=== PATIENT | male | born 1950 | race Caucasian/White ===

== ENCOUNTER 2017-04-29 13:30 | Inpatient (IN) | payer OTHER, MEDICARE ==
[~2017-04-29] VITALS: Ht 167.6 cm; Wt 61.7 kg
--- NOTE | 2017-04-29 13:56 | ED PSYCHIATRIC COMPLAINT ---
See Addendum History of Present Illness General Chief Complaint: ETOH/Drug Related Complaint Stated Complaint: CLEARANCE FOR HIGHWATCH Source: patient Exam Limitations: intoxication Vital Signs & Intake/Output Vital Signs & Intake/Output Vital Signs Date Time Temp Pulse Resp B/P B/P Pulse O2 O2 Flow FiO2 Mean Ox Delivery Rate 04/30 0250 98.9 78 18 113/64 04/30 0250 98.9 78 20 113/64 94 Room Air 04/30 0218 122/68 04/30 0052 97.8 79 20 96/52 04/30 0052 97.8 79 20 96/52 95 Room Air 04/29 2251 106 118/60 04/29 2235 98.2 106 18 118/60 96 Room Air 04/29 2039 96.7 91 18 110/60 97 04/29 1943 96.0 93 20 118/60 04/29 1825 96.0 93 20 118/60 92 Room Air 04/29 1812 98.0 95 16 100/60 04/29 1811 98.0 95 16 100/60 98 Room Air 04/29 1655 97.8 77 20 100/64 98 Room Air 04/29 1430 96.2 90 20 119/68 04/29 1430 96.2 90 20 119/68 100 Room Air 04/29 1343 98.6 122 18 169/110 98 Room Air ED Intake and Output 04/30 0000 04/29 1200 Intake Total Output Total Balance Patient 140 lb Weight Weight Reported by Patient Measurement Method Allergies Coded Allergies: penicillin G (Severe, 04/29/17) Triage Note: 67 YO MALE TO TRIAGE REQUESTING CLEARENCE FOR HIGHWATCH. DENIE SEIZURE HX. 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 PT NOTED TO SLURRING WORDS AND STRONG SMELL OF ALCOHOL. Triage Nurses Notes Reviewed? yes HPI: Patient presents for evaluation of alcohol intoxication and dependence. Patient admits to drinking 2 pints of vodka daily and his last alcoholic beverages about 30 minutes prior to arrival. He states he has "a drinking problem" and that he "drinks a lot". He wishes to have alcohol detoxification. After that he wishes to enter [facility] for rehabilitation. He admits to having a seizure "a long time ago" but denies history of DTs. He likewise denies drug abuse or cigarette smoking. (Greta RAMIREZ,Marcus Vang) Reconcile Medications Aspirin (Aspirin*) 325 MG TABLET 1 TAB PO DAILY CAD (Reported) Atorvastatin Calcium 10 MG TABLET 1 TAB PO DAILY CAD/ELEVATED CHOLESTEROL ( Reported) Gabapentin 300 MG CAPSULE 1 CAP PO 4 TIMES/DAY UNKNOWN REASON (Reported) Metoprolol Tartrate 25 MG TABLET 1 TAB PO QPM CAD (Reported) Metoprolol Tartrate (Lopressor) 50 MG TABLET 1 TAB PO QAM CAD (Reported) (Carlos Eduardo RAMIREZ,Ria) Past History Travel History Traveled to [place] past 21 day No Medical History Any Pertinent Medical History? see below for history Cardiovascular: CAD Surgical History Surgical History: CABG Psychosocial History What is your primary language Slovenian Tobacco Use: Never used ETOH Use: alcoholic Illicit Drug Use: denies illicit drug use Family History Hx Contributory? No (Greta RAMIREZ,Marcus Vang) Review of Systems Review of Systems Constitutional: Reports: no symptoms. EENTM: Reports: no symptoms. Respiratory: Reports: no symptoms. Cardiovascular: Reports: no symptoms. GI: Reports: no symptoms. Genitourinary: Reports: no symptoms. Musculoskeletal: Reports: no symptoms. Skin: Reports: no symptoms. Neurological/Psychological: Reports: no symptoms. Hematologic/Endocrine: Reports: no symptoms. Immunologic/Allergic: Reports: no symptoms. All Other Systems: Reviewed and Negative (Greta RAMIREZ,Marcus Vang) Physical Exam Physical Exam General Appearance: SEE BELOW Neurological/Psychiatric: SEE BELOW Comments: General: Alert, calm but becomes loud at times, cooperative, EtOH-like odor and appears clinically intoxicated Head: Normocephalic, atraumatic Eyes: Normal inspection, no nystagmus, EOMI Ears: Normal inspection Nose: Normal inspection Throat: Moist mucosa Neck: Supple, no goiter Heart: Regular rate and rhythm Lungs: Clear to auscultation bilaterally with good air entry Abdomen: Soft nontender nondistended, normal bowel sounds Chest: Nontender Extremities: Normal range of motion grossly, mild tremors present, no cyanosis clubbing or edema of the upper extremities Neurologic: cranial nerves II through XII grossly intact, speech slurred Psychiatric: No apparent delusions or hallucinations, no pressured speech or thought blocking SAD PERSONS Done? patient not suicidal (Greta RAMIREZ,Marcus Vang) Progress Differential Diagnosis: intoxication, alcohol withdrawal Plan of Care: Orders Procedure Date/time Status Patient Safety Monitor 04/29 1403 Active CIWA 04/29 1333 Active URINE DRUG SCREEN FOR ER ONLY 04/29 1333 Complete LIPASE 04/29 1333 Complete ETHANOL 04/29 1333 Complete COMPREHENSIVE METABOLIC PANEL 04/29 1333 Complete CBC WITHOUT DIFFERENTIAL 04/29 1333 Complete AMYLASE 04/29 1333 Complete Current Medications Sig/Zahraa Start time Last Medication Dose Stop Time Status Admin Metoprolol Tartrate 50 MG QAM 04/30 1000 UNVr (Lopressor) Gabapentin 300 MG Q6 04/29 2359 UNVr 04/29 (Neurontin) 2251 Laboratory Tests 04/29/17 1521: Urine Opiates Screen < 100.00, Methadone Screen < 40, Barbiturate Screen < 60, Ur Phencyclidine Scrn < 6.00, Amphetamines Screen < 100, U Benzodiazepines Scrn < 85, Urine Cocaine Screen < 50, Urine Cannabis Screen 11.00 04/29/17 1420: Anion Gap 20 H, Estimated GFR > 60, BUN/Creatinine Ratio 26.0 H, Glucose 133 H, Calcium 8.9, Total Bilirubin 1.0, AST 45, ALT 40, Alkaline Phosphatase 61, Total Protein 6.8, Albumin 4.3, Globulin 2.5, Albumin/Globulin Ratio 1.7, Amylase 34, Lipase 103, CBC w Diff NO MAN DIFF REQ, RBC 3.71 L, MCV 104.3 H, MCH 35.3 H, RDW 14.9 H, MPV 6.9 L, Gran % 72.4, Lymphocytes % 19.5 L, Monocytes % 7.6, Eosinophils % 0.1, Basophils % 0.4, Absolute Granulocytes 5.5, Absolute Lymphocytes 1.5, Absolute Monocytes 0.6, Absolute Eosinophils 0, Absolute Basophils 0, PUBS MCHC 33.9, Serum Alcohol 533.0 7:15 PM PATIENT SIGNED OUT TO ME BY DR HERNANDES. PENDING SOBRIETY, IF STABLE MAY TRANSFER TO [facility] IN AM. 1:30 AM PATIENT WITH SLIGHT HYPOTENSION. IV FLUIDS 1 L ORDERED. WILL CONTINUE TO MONITOR. 3:46 AM BP WNL. NO EVIDENCE OF WITHDRAWAL. 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 (Greta RAMIREZ,Marcus Vang) Hand-Off Endorsed To: Marcus Hernandes MD Endorsed Time: 0700 Pending: other (TRANSFER TO [facility]) (Carlos Eduardo RAMIREZ,Ria) Departure Departure Disposition: STILL A PATIENT Condition: Stable Clinical Impression Primary Impression: Alcohol intoxication Qualifiers: Complication of substance-induced condition: uncomplicated Qualified Code: F10.920 - Alcohol use, unspecified with intoxication, uncomplicated Departure Forms: Customer Survey General Discharge Information (Greta RAMIREZ,Marcus Vang) PA/DRYWALL CARRIER Co-Sign Statement Statement: ED Attending supervision documentation- [] I saw and evaluated the patient. I have also reviewed all the pertinent lab results and diagnostic results. I agree with the findings and the plan of care as documented in the PA's/DRYWALL CARRIER's documentation. [] I have reviewed the ED Record and agree with the PA's/DRYWALL CARRIER's documentation. [] Additions or exceptions (if any) to the PAs/DRYWALL CARRIER's note and plan are summarized below: [] (Carlos Eduardo RAMIREZ,Ria)
[2017-04-29 14:27] LABS: ABSOLUTE BASOPHIL COUNT 0 /CUMM (0.0-0.2); ABSOLUTE EOSINOPHIL COUNT 0 /CUMM (0.0-0.7); ABSOLUTE GRANULOCYTE CT 5.5 /CUMM (1.4-6.5); ABSOLUTE LYMPH COUNT 1.5 /CUMM (1.2-3.4); ABSOLUTE MONOCYTE COUNT 0.6 /CUMM (0.10-0.60); BASOPHIL % 0.4 % (0.0-2.0); EOSINOPHIL % 0.1 % (0-5); GRANULOCYTE % 72.4 % (42.2-75.2); HEMATOCRIT 38.7 % (42-52); MEAN CORPUSCULAR HGB 35.3 PG (27.0-31.0); MEAN CORPUSCULAR HGB CONC 33.9 G/DL (33.0-37.0); MEAN CORPUSCULAR VOLUME 104.3 FL (80.0-94.0); MEAN PLATELET VOLUME 6.9 FL (7.4-10.4); PLATELET COUNT 135 /CUMM (130-400); RBC DISTRIBUTION WIDTH 14.9 % (11.5-14.5); RED BLOOD CELL CT 3.71 /CUMM (4.70-6.10); WHITE BLOOD CELL COUNT 7.7 /CUMM (4.8-10.8)
[2017-04-29 14:30] VITALS: BP 119/68
[2017-04-29] MEDS ORDERED: METOPROLOL SUCC50 M2 PO (16:53)
[2017-04-29] MEDS ORDERED: METOPROLOL TART25 M1 PO (16:53)
[2017-04-29] MEDS ORDERED: ASPIRIN325 M2 PO (16:54)
[2017-04-29] MEDS ORDERED: GABAPENTIN300 M2 PO (16:54)
[2017-04-29] MEDS ORDERED: LOPRESSOR50 M1 PO (16:55)
[2017-04-29 18:12] VITALS: BP 100/60
[2017-04-29 19:43] VITALS: BP 118/60
[2017-04-29] MEDS ORDERED: ATORVASTATIN CA10 M1 PO (22:56)
[2017-04-30] VITALS (11 sets, daily range): BP systolic 96–188; BP diastolic 52–92
--- NOTE | 2017-04-30 11:19 | History & Physical ---
Oswaldo Hope 04/30/17 1119: General Information and HPI MD Statement: I have seen and personally examined NADIR GABRIEL and documented this H&P. The patient is a 67 year old M who presented with a patient stated chief complaint of alcohol detoxification. Source of Information: patient Exam Limitations: no limitations History of Present Illness: This is a 67-year-old male with past medical history significant for mitral valve replacement, atrial fibrillation status post cardioversion, not on anticoagulation, hyperlipidemia,nerve pain, current smoker, alcoholic presented to [facility] for alcohol detoxification. Patient presented to [facility] today requesting for alcohol detox and going to [facility] for rehabilitation. Patient has been drinking for years. He usually drinks 2 pints of vodka daily. He was sober for a few months in this summer. However he continued to drink 2-3 pints of vodka daily. Last drink 30 minutes prior coming to the emergency room. Patient was admitted to [facility] recently for alcohol detox. He was never admitted to ICU for intubation or required Ativan drip. He has had episode of withdrawal seizures few years back. He denies any seizures, visual hallucinations, auditory hallucinations, vomiting , abdominal pain, troubles. However he reports nausea, sweating, anxiety. Denied any agitation, delirium tremens. He continued to be hypotensive, tachycardic in the emergency room with high CIWA scores requiring for alcohol detoxification admission. Review of systems completely negative. Denies any chest pain, short of breath, palpitations, fever, chills, cough, vomiting, abdominal pain, diarrhea, constipation. Reports mild headache. Denies any weakness, sensory changes, vision problems. Reports some gait instability from drinking. He follows PCP in [place]. Continues to smoke 10 cigarettes per day. Denies any illicit drug abuse. Allergies/Medications Allergies: Coded Allergies: penicillin G (Severe, 04/29/17) Home Med list Aspirin (Aspirin*) 325 MG TABLET 1 TAB PO DAILY CAD (Reported) Atorvastatin Calcium 10 MG TABLET 1 TAB PO DAILY CAD/ELEVATED CHOLESTEROL ( Reported) Gabapentin 300 MG CAPSULE 1 CAP PO 4 TIMES/DAY UNKNOWN REASON (Reported) Metoprolol Tartrate 25 MG TABLET 1 TAB PO QPM CAD (Reported) Metoprolol Tartrate (Lopressor) 50 MG TABLET 1 TAB PO QAM CAD (Reported) Compliance With Home Meds: GOOD Past History Travel History Traveled to [place] past 21 day No Medical History Cardiovascular: CAD Isolation History: Standard Surgical History Surgical History: CABG Past Family/Social History Family History Relations & Conditions if any Relation not specified for: *No pertinent family history Psychosocial History Smoking Status: Current Everyday Smoker ETOH Use: alcoholic Illicit Drug Use: denies illicit drug use Review of Systems Review of Systems Constitutional: Reports: see HPI. Denies: chills, fever, malaise, weakness, unexplained weight loss. EENTM: Denies: blurred vision, double vision. Cardiovascular: Denies: chest pain, edema, orthopena, palpitations, peripheral edema. Respiratory: Denies: cough, hemoptysis, orthopnea, short of breath, sputum production, stridor, wheezing. GI: Reports: nausea. Denies: abdominal pain, bloating, constipation, diarrhea, distention, bowel incontinence, melena, bloody stool, vomiting. Genitourinary: Denies: dysuria, frequency, hematuria. Musculoskeletal: Denies: back pain, gout, joint pain. Skin: Denies: jaundice, lesions, moles. Neurological/Psychological: Reports: anxiety. Denies: ataxia, confusion, depressed. Exam & Diagnostic Data Last 24 Hrs of Vital Signs/I&O Vital Signs Date Time Temp Pulse Resp B/P B/P Pulse O2 O2 Flow FiO2 Mean Ox Delivery Rate 04/30 1530 98.6 80 16 132/78 95 Room Air 04/30 1529 98.8 80 16 132/78 04/30 1437 98.7 80 18 126/74 04/30 1436 98.7 80 18 126/74 95 Room Air 04/30 1256 98.5 80 18 143/78 95 Room Air 04/30 1025 98.8 110 18 188/84 04/30 0947 98.8 110 18 188/84 04/30 0947 98.8 110 18 188/84 98 Room Air 04/30 0652 97.7 88 18 159/85 04/30 0652 97.7 88 18 159/85 95 Room Air 04/30 0452 98.0 92 18 124/78 04/30 0452 98.8 92 18 124/78 94 Room Air 04/30 0250 98.9 78 18 113/64 04/30 0250 98.9 78 20 113/64 94 Room Air 04/30 0218 122/68 04/30 0052 97.8 79 20 96/52 04/30 0052 97.8 79 20 96/52 95 Room Air 04/29 2251 106 118/60 04/29 2235 98.2 106 18 118/60 96 Room Air 04/29 2039 96.7 91 18 110/60 97 04/29 1943 96.0 93 20 118/60 04/29 1825 96.0 93 20 118/60 92 Room Air 04/29 1812 98.0 95 16 100/60 04/29 1811 98.0 95 16 100/60 98 Room Air 04/29 1655 97.8 77 20 100/64 98 Room Air Physical Exam General Appearance Alert, Oriented X3, Cooperative, No Acute Distress Skin No Rashes, No Breakdown Skin Temp/Moisture Exam: Cool/Dry Sepsis Skin Exam (color): Normal for Ethnicity HEENT Atraumatic, PERRLA, EOMI, Mucous Membr. moist/pink Neck Supple, No JVD Lymphatic Cervical nl Cardiovascular Regular Rate, Normal S1, Normal S2, No Murmurs Lungs Normal Air Movement Abdomen Normal Bowel Sounds, Soft, No Tenderness Neurological Normal Speech, Strength at 5/5 X4 Ext, Normal Tone, Sensation Intact, Cranial Nerves 3-12 NL, Reflexes 2+ Extremities No Clubbing, No Cyanosis, No Edema, Normal Pulses Vascular Normal Pulses, Pulses Symmetrical Last 24 Hrs of Labs/Camron: Laboratory Tests 04/30/17 1151: Anion Gap 12, Estimated GFR > 60, BUN/Creatinine Ratio 20.0, CBC w Diff NO MAN DIFF REQ, RBC 3.44 L, MCV 104.3 H, MCH 35.6 H, RDW 14.4, MPV 7.3 L, Gran % 76.3 H, Lymphocytes % 15.7 L, Monocytes % 7.1, Eosinophils % 0.2, Basophils % 0.7, Absolute Granulocytes 4.9, Absolute Lymphocytes 1.0 L, Absolute Monocytes 0.5, Absolute Eosinophils 0, Absolute Basophils 0, PUBS MCHC 34.1 Assessment/Plan Assessment: This is a 67-year-old male with past medical history significant for mitral valve replacement, atrial fibrillation status post cardioversion, not on anticoagulation, hyperlipidemia,nerve pain, current smoker, alcoholic presented to [facility] for alcohol detoxification. Vitals at the time of presentation afebrile, heart rate 110, respiratory rate 18, blood pressure 180/84, saturating at 98 on room air. Pertinent labs hemoglobin 13, hematocrit 30, MCV 104, WBC 7.7, platelets 135. Sodium 147, potassium 3.4, BUN 13, creatinine 0.5. LFTs were normal. Amylase and lipase normal. serum alc 533. EKG showed sinus rhythm, rate 78, right bundle branch block, QTC 523 1. Alcohol detox Patient presented to [facility] today requesting for alcohol detox and going to [facility] for rehabilitation. Patient has been drinking for years. He usually drinks 2 pints of vodka daily. He was sober for a few months in this summer. However he continued to drink 2-3 pints of vodka daily. Last drink 30 minutes prior coming to the emergency room. Patient was admitted to [facility] recently for alcohol detox. He was never admitted to ICU for intubation or required Ativan drip. He has had episode of withdrawal seizures few years back. He continued to be hypotensive, tachycardic in the emergency room with high CIWA scores requiring for alcohol detoxification admission. * Admitted to general medicine for alcohol detoxification * Monitor vitals every shift * Monitor CIWA scores closely * Continue Ativan scheduled doses 2 mg every 6 * Continue Ativan IV for CIWA protocol as required * Continue multivitamin, thiamine, folate * pantry goods worker consult * Alcohol cessation counseling Macrocytosis Hemoglobin 13, hematocrit 38, MCV 104 at the time of admission most possibly from alcohol abuse Thrombocytopenia Platelets 135 at the time of admission. His platelets were 101 this morning. Most likely from alcohol abuse. However will hold any anticoagulation with heparin or Lovenox. Will continue Alps for now. Hypernatremia Sodium 147 at the time of admission. He was encouraged to take fluids. Sodium improved 144. Hypokalemia Potassium 3.4. Repleted. We will recheck potassium in a.m. Current smoker Continue nicotine 21 mg daily DVT prophylaxis alps Pain pathway Regular diet Full code As Ranked By This Provider Problem List: 1. Alcohol dependence Qualifiers Substance use status: Qualified Code: F10.920 - Alcohol use, unspecified with intoxication, uncomplicated 2. Alcohol intoxication Qualifiers Complication of substance-induced condition: uncomplicated Qualified Code: F10.920 - Alcohol use, unspecified with intoxication, uncomplicated Core Measures/Misc (12/28) Acute Coronary Syndrome ACS Diagnosis: No Congestive Heart Failure Congestive Heart Failure Diagnosis No Cerebrovascular Accident CVA/TIA Diagnosis: No VTE (View Protocol) VTE Risk Factors No risk factors No Mechanical VTE Prophylaxis d/t N/A MechProphylax Ordered No VTE Pharm Prophylaxis d/t NA PharmProphylax ordered Sepsis (View protocol) Sepsis Present: No Keegan RAMIREZ,Terese 04/30/17 1345: Attending Review Statement Attending Statement Attending MD Statement: examined this patient, discuss w/resident/PA/MILK BOTTLING MACHINE OPERATOR, agreed w/resident/PA/MILK BOTTLING MACHINE OPERATOR, reviewed EMR data (avail), discussed with nursing, discussed with case mgmt, amended to note Attending Assessment/Plan: 67-year-old male with past medical history significant for coronary artery disease, alcohol use who presented to the emergency room with acute onset: Intoxication. Patient was initially going to be [facility]. Patient started to score high on the CIWA. He does have a history of alcohol withdrawal seizures in the past therefore medicine team was called for admission to medical floor. Patient himself has some shaking. He is getting Ativan. He currently denies any aches or pains or any shortness of breath. He did have slight hyponatremia on yesterday's labs. Vital Signs Date Time Temp Pulse Resp B/P B/P Pulse O2 O2 Flow FiO2 Mean Ox Delivery Rate 04/30 1256 98.5 80 18 143/78 95 Room Air 04/30 1025 98.8 110 18 188/84 04/30 0947 98.8 110 18 188/84 04/30 0947 98.8 110 18 188/84 98 Room Air 04/30 0652 97.7 88 18 159/85 04/30 0652 97.7 88 18 159/85 95 Room Air 04/30 0452 98.0 92 18 124/78 04/30 0452 98.8 92 18 124/78 94 Room Air 04/30 0250 98.9 78 18 113/64 04/30 0250 98.9 78 20 113/64 94 Room Air 04/30 0218 122/68 04/30 0052 97.8 79 20 96/52 04/30 0052 97.8 79 20 96/52 95 Room Air 04/29 2251 106 118/60 04/295 98.2 106 18 118/60 96 Room Air 04/29 2038 96.7 91 18 110/60 97 04/29 1943 96.0 93 20 118/60 04/29 1825 96.0 93 20 118/60 92 Room Air 04/29 1812 98.0 95 16 100/60 04/29 1811 98.0 95 16 100/60 98 Room Air 04/29 1655 97.8 77 20 100/64 98 Room Air 04/29 1430 96.2 90 20 119/68 04/29 1430 96.2 90 20 119/68 100 Room Air on exam; aox3, nad. cv; s1,s2, rrr resp; clear abd; soft, nt, bs+ ext; no edema. Laboratory Tests 04/30 04/29 1151 1521 Chemistry Sodium (137 - 145 mmol/L) 142 Potassium (3.5 - 5.1 mmol/L) 3.6 Chloride (98 - 107 mmol/L) 100 Carbon Dioxide (22 - 30 mmol/L) 30 Anion Gap (5 - 16) 12 BUN (9 - 20 mg/dL) 10 Creatinine (0.7 - 1.2 mg/dL) 0.5 L Estimated GFR (>60 ml/min) > 60 BUN/Creatinine Ratio (7 - 25 %) 20.0 Hematology CBC w Diff NO MAN DIFF REQ WBC (4.8 - 10.8 /CUMM) 6.4 RBC (4.70 - 6.10 /CUMM) 3.44 L Hgb (14.0 - 18.0 G/DL) 12.3 L Hct (42 - 52 %) 35.9 L MCV (80.0 - 94.0 FL) 104.3 H MCH (27.0 - 31.0 PG) 35.6 H RDW (11.5 - 14.5 %) 14.4 Plt Count (130 - 400 /CUMM) 101 L MPV (7.4 - 10.4 FL) 7.3 L Gran % (42.2 - 75.2 %) 76.3 H Lymphocytes % (20.5 - 51.1 %) 15.7 L Monocytes % (1.7 - 9.3 %) 7.1 Eosinophils % (0 - 5 %) 0.2 Basophils % (0.0 - 2.0 %) 0.7 Absolute Granulocytes (1.4 - 6.5 /CUMM) 4.9 Absolute Lymphocytes (1.2 - 3.4 /CUMM) 1.0 L Absolute Monocytes (0.10 - 0.60 /CUMM) 0.5 Absolute Eosinophils (0.0 - 0.7 /CUMM) 0 Absolute Basophils (0.0 - 0.2 /CUMM) 0 PUBS MCHC (33.0 - 37.0 G/DL) 34.1 Toxicology Urine Opiates Screen (>2000 NG/ML) < 100.00 Methadone Screen (>300 NG/ML) < 40 Barbiturate Screen (>200 NG/ML) < 60 Ur Phencyclidine Scrn (>25 NG/ML) < 6.00 Amphetamines Screen (>1000 NG/ML) < 100 U Benzodiazepines Scrn (>200 NG/ML) < 85 Urine Cocaine Screen (>300 NG/ML) < 50 Urine Cannabis Screen (>50 NG/ML) 11.00 /17 1420 Chemistry Sodium (137 - 145 mmol/L) 147 H Potassium (3.5 - 5.1 mmol/L) 3.4 L Chloride (98 - 107 mmol/L) 99 Carbon Dioxide (22 - 30 mmol/L) 28 Anion Gap (5 - 16) 20 H BUN (9 - 20 mg/dL) 13 Creatinine (0.7 - 1.2 mg/dL) 0.5 L Estimated GFR (>60 ml/min) > 60 BUN/Creatinine Ratio (7 - 25 %) 26.0 H Glucose (65 - 99 mg/dL) 133 H Calcium (8.4 - 10.2 mg/dL) 8.9 Total Bilirubin (0.2 - 1.3 mg/dL) 1.0 AST (17 - 59 U/L) 45 ALT (21 - 72 U/L) 40 Alkaline Phosphatase (< 127 U/L) 61 Total Protein (6.3 - 8.2 g/dL) 6.8 Albumin (3.5 - 5.0 g/dL) 4.3 Globulin (1.9 - 4.2 gm/dL) 2.5 Albumin/Globulin Ratio (1.1 - 2.2 %) 1.7 Amylase (30 - 110 U/L) 34 Lipase (23 - 300 U/L) 103 Hematology CBC w Diff NO MAN DIFF REQ WBC (4.8 - 10.8 /CUMM) 7.7 RBC (4.70 - 6.10 /CUMM) 3.71 L Hgb (14.0 - 18.0 G/DL) 13.1 L Hct (42 - 52 %) 38.7 L MCV (80.0 - 94.0 FL) 104.3 H MCH (27.0 - 31.0 PG) 35.3 H RDW (11.5 - 14.5 %) 14.9 H Plt Count (130 - 400 /CUMM) 135 MPV (7.4 - 10.4 FL) 6.9 L Gran % (42.2 - 75.2 %) 72.4 Lymphocytes % (20.5 - 51.1 %) 19.5 L Monocytes % (1.7 - 9.3 %) 7.6 Eosinophils % (0 - 5 %) 0.1 Basophils % (0.0 - 2.0 %) 0.4 Absolute Granulocytes (1.4 - 6.5 /CUMM) 5.5 Absolute Lymphocytes (1.2 - 3.4 /CUMM) 1.5 Absolute Monocytes (0.10 - 0.60 /CUMM) 0.6 Absolute Eosinophils (0.0 - 0.7 /CUMM) 0 Absolute Basophils (0.0 - 0.2 /CUMM) 0 PUBS MCHC (33.0 - 37.0 G/DL) 33.9 Toxicology Serum Alcohol (<10 MG/DL) 533.0 A/P: 67 male with history significant for coronary artery disease, alcohol use admitted with acute alcohol intoxication. Patient admitted to medicine floor. He will be started on scheduled and when necessary Ativan per [facility] protocol. Will be started on multivitamin, folate and thiamine. We'll resume his home medications. Noted a drop in his platelet count which is likely related to alcohol use. Also he was slightly hypernatremic and hypokalemic yesterday. Electrolytes are stable today. Patient did receive a dose of Lovenox in the emergency room. Would hold off on further heparin or Lovenox secondary to thrombocytopenia, DVT prophylaxis: ALPS. Patient is a full code
[2017-04-30 12:00] LABS: ABSOLUTE BASOPHIL COUNT 0 /CUMM (0.0-0.2); ABSOLUTE EOSINOPHIL COUNT 0 /CUMM (0.0-0.7); ABSOLUTE GRANULOCYTE CT 4.9 /CUMM (1.4-6.5); ABSOLUTE MONOCYTE COUNT 0.5 /CUMM (0.10-0.60); BASOPHIL % 0.7 % (0.0-2.0); EOSINOPHIL % 0.2 % (0-5); GRANULOCYTE % 76.3 % (42.2-75.2); HEMATOCRIT 35.9 % (42-52); MEAN CORPUSCULAR HGB 35.6 PG (27.0-31.0); MEAN CORPUSCULAR HGB CONC 34.1 G/DL (33.0-37.0); MEAN CORPUSCULAR VOLUME 104.3 FL (80.0-94.0); MEAN PLATELET VOLUME 7.3 FL (7.4-10.4); RBC DISTRIBUTION WIDTH 14.4 % (11.5-14.5); RED BLOOD CELL CT 3.44 /CUMM (4.70-6.10); WHITE BLOOD CELL COUNT 6.4 /CUMM (4.8-10.8)
[2017-04-30 12:28] LABS: PLATELET COUNT 101 /CUMM (130-400)
[2017-05-01] VITALS (8 sets, daily range): BP systolic 122–154; BP diastolic 60–90
--- NOTE | 2017-05-01 08:05 | PN- Housestaff ---
Oswaldo Hope 05/01/17 0804: Subjective Follow-up For: Alcohol detoxification Subjective: Patient was seen and examined. Alert awake and oriented to time place and person No events overnight No nausea, vomiting, headache, weakness, hallucination. Reports anxiety, tremors, sweating. CIWA scores maximum 6. From tremors and sweating Vitals remained stable blood pressure and heart rate normal Review of Systems Constitutional: Reports: see HPI. Objective Last 24 Hrs of Vital Signs/I&O Vital Signs Date Time Temp Pulse Resp B/P B/P Pulse O2 O2 Flow FiO2 Mean Ox Delivery Rate 05/01 0949 87 122/78 05/01 0615 98.3 87 20 122/78 94 Room Air 05/01 0600 98.3 87 20 122/78 05/01 0200 98.7 98 20 154/82 05/01 0200 98.4 83 18 142/80 95 Room Air 05/01 0000 98.7 98 20 154/82 04/30 2236 98.7 98 20 154/82 93 Room Air 04/30 2200 98 154/92 04/30 2152 98 154/92 04/30 1812 98.3 81 16 152/80 04/30 1810 98.3 81 16 152/80 93 Room Air 04/30 1718 97.5 84 16 134/82 97 Room Air 04/30 1530 98.6 80 16 132/78 95 Room Air 04/30 1529 98.8 80 16 132/78 04/30 1437 98.7 80 18 126/74 04/30 1436 98.7 80 18 126/74 95 Room Air 04/30 1256 98.5 80 18 143/78 95 Room Air 04/30 1025 98.8 110 18 188/84 Intake & Output 05/01 1600 05/01 0800 05/01 0000 Intake Total 220 480 Output Total Balance 220 480 Intake, IV 20 Intake, Oral 200 480 Patient 61.745 kg Weight Weight Bed scale Measurement Method Physical Exam General Appearance: Alert, Oriented X3, Cooperative, No Acute Distress Other Physical Findings: Skin No Rashes, No Breakdown Skin Temp/Moisture Exam: Cool/Dry Sepsis Skin Exam (color): Normal for Ethnicity HEENT Atraumatic, PERRLA, EOMI, Mucous Membr. moist/pink Neck Supple, No JVD Lymphatic Cervical nl Cardiovascular Regular Rate, Normal S1, Normal S2, No Murmurs Lungs Normal Air Movement Abdomen Normal Bowel Sounds, Soft, No Tenderness Neurological Normal Speech, Strength at 5/5 X4 Ext, Normal Tone, Sensation Intact, Cranial Nerves 3-12 NL, Reflexes 2+ Extremities No Clubbing, No Cyanosis, No Edema, Normal Pulses Vascular Normal Pulses, Pulses Symmetrical Current Medications: Current Medications Sig/Zahraa Start time Last Medication Dose Route Stop Time Status Admin Acetaminophen 650 MG Q6P PRN 04/30 1115 AC PO Acetaminophen 1,000 MG Q6P PRN 04/30 1115 AC IV Aspirin 0 .STK-MED ONE 04/30 1023 DC PO Aspirin 325 MG DAILY 04/30 1004 AC 05/01 PO 0950 Atorvastatin Calcium 10 MG DAILY 04/30 1004 AC 05/01 PO 0950 Enoxaparin Sodium 0 .STK-MED ONE 04/30 1158 DC SC Enoxaparin Sodium 40 MG DAILY 04/30 1112 DC 04/30 SC 1214 Folic Acid 0 .STK-MED ONE 04/30 1158 DC PO Folic Acid 1 MG DAILY 04/30 1112 AC 05/01 PO 0950 Gabapentin 300 MG Q8 04/30 1400 AC 05/01 PO 0600 Gabapentin 0 .STK-MED ONE 04/30 1207 DC PO Gabapentin 300 MG 4 TIMES/DAY 04/30 1004 DC PO Gabapentin 300 MG Q6 04/29 2359 DC 04/30 PO 0609 Lorazepam 0.5 MG Q8 05/03 0600 UNVr PO 05/03 2201 Lorazepam 1 MG Q8 05/02 0600 UNVr PO 05/02 2201 Lorazepam 1.5 MG Q6 05/01 1200 UNVr PO 05/01 2300 Lorazepam 2 MG Q6 04/30 1200 DC 05/01 PO 0600 Lorazepam 0 .STK-MED ONE 04/30 1156 DC PO Lorazepam 0 Q1P PRN 04/30 1130 AC IV Lorazepam 0 .STK-MED ONE 04/30 1012 DC PO Lorazepam 0 .STK-MED ONE 04/30 1012 DC .ROUTE Lorazepam 2 MG ONE ONE 04/30 1000 DC 04/30 IV 04/30 1001 1014 Lorazepam 2 MG ONCE ONE 04/30 1000 DC 04/30 PO 04/30 1001 1014 Lorazepam 2 MG Q2P PRN 04/30 1000 DC IV Lorazepam 1 MG Q2P PRN 04/30 1000 DC IV Metoprolol Tartrate 50 MG QAM 05/01 1000 AC 05/01 PO 0949 Metoprolol Tartrate 25 MG QPM 04/30 2200 AC 04/30 PO 2152 Metoprolol Tartrate 50 MG BID 04/30 1005 DC 04/30 PO 1025 Metoprolol Tartrate 50 MG QAM 04/30 1000 DC PO Multivitamins 0 .STK-MED ONE 04/30 1200 DC PO Multivitamins 1 TAB DAILY 04/30 1112 AC 05/01 PO 0949 Nicotine 0 .STK-MED ONE 04/30 1159 DC TOP Nicotine 21 MG Q24 04/30 1112 AC 05/01 TOP 0950 Ondansetron HCl 4 MG Q8P PRN 04/30 1115 DC IV Potassium Chloride 40 MEQ ONCE ONE 04/30 1900 DC 04/30 PO 04/30 1901 1834 Potassium Chloride 0 .STK-MED ONE 04/30 1155 DC PO Potassium Chloride 40 MEQ ONCE ONE 04/30 1130 DC 04/30 PO 04/30 1131 1214 Thiamine HCl 0 .STK-MED ONE 04/30 1202 DC PO Thiamine HCl 0 .STK-MED ONE 04/30 1200 DC PO Thiamine HCl 100 MG DAILY 04/30 1112 AC 05/01 PO 0950 Last 24 Hrs of Lab/[facility] Results Last 24 Hrs of Labs/Mics: Laboratory Tests 05/01/17 0742: Anion Gap 12, Estimated GFR > 60, BUN/Creatinine Ratio 26.0 H, CBC w Diff NO MAN DIFF REQ, RBC 3.58 L, MCV 104.8 H, MCH 35.6 H, RDW 14.2, MPV 8.1, Gran % 73.8, Lymphocytes % 17.7 L, Monocytes % 7.0, Eosinophils % 1.4, Basophils % 0.1 , Absolute Granulocytes 5.7, Absolute Lymphocytes 1.4, Absolute Monocytes 0.5, Absolute Eosinophils 0.1, Absolute Basophils 0, PUBS MCHC 34.0 04/30/17 1151: Anion Gap 12, Estimated GFR > 60, BUN/Creatinine Ratio 20.0, CBC w Diff NO MAN DIFF REQ, RBC 3.44 L, MCV 104.3 H, MCH 35.6 H, RDW 14.4, MPV 7.3 L, Gran % 76.3 H, Lymphocytes % 15.7 L, Monocytes % 7.1, Eosinophils % 0.2, Basophils % 0.7, Absolute Granulocytes 4.9, Absolute Lymphocytes 1.0 L, Absolute Monocytes 0.5, Absolute Eosinophils 0, Absolute Basophils 0, PUBS MCHC 34.1 Assessment/Plan Assessment: This is a 67-year-old male with past medical history significant for mitral valve replacement, atrial fibrillation status post cardioversion, not on anticoagulation, hyperlipidemia,nerve pain, current smoker, alcoholic presented to [facility] for alcohol detoxification. Vitals at the time of presentation afebrile, heart rate 110, respiratory rate 18, blood pressure 180/84, saturating at 98 on room air. Pertinent labs hemoglobin 13, hematocrit 30, MCV 104, WBC 7.7, platelets 135. Sodium 147, potassium 3.4, BUN 13, creatinine 0.5. LFTs were normal. Amylase and lipase normal. serum alc 533. EKG showed sinus rhythm, rate 78, right bundle branch block, QTC 523 1. Alcohol detox Patient presented to [facility] today requesting for alcohol detox and going [facility] for [facility]. Patient has been drinking for years. He usually drinks 2 pints of vodka daily. He was sober for a few months in this summer. However he continued to drink 2-3 pints of vodka daily. Last drink 30 minutes prior coming to the emergency room. Patient was admitted to [facility] recently for alcohol detox. He was never admitted to ICU for intubation or required Ativan drip. He has had episode of withdrawal seizures few years back. He continued to be hypotensive, tachycardic in the emergency room with high CIWA scores requiring for alcohol detoxification admission. * Admitted to general medicine for alcohol detoxification * Monitor vitals every shift * Monitor CIWA scores closely * Continue Ativan at scheduled doses * 2 mg every 6 hours- on 04/30. * 1.5 mg every 6hrs - on 05/01. * 1 mg every 8 hours for 05/02/2017 * 0.5 every 8 hours for 05/03/2017. Please adjust if required based on CIWA scores. * Continue Ativan IV for CIWA protocol as required * Continue multivitamin, thiamine, folate * farmworker general consulted, on board * Alcohol cessation counseling * Will [facility] after completing alcohol detoxification Macrocytosis Hemoglobin 13, hematocrit 38, MCV 104 at the time of admission most possibly from alcohol abuse Thrombocytopenia Platelets 135 at the time of admission. Most likely from alcohol abuse. However will hold any anticoagulation with heparin or Lovenox. Will continue Alps for now. * Platelets trend 135- 101- 85. * Monitor for any signs of bleeding Hypernatremia Sodium 147 at the time of admission. He was encouraged to take fluids. Sodium improved 144-138. Hypokalemia Potassium 3.4. Repleted. Repeat potassium 3.8. Current smoker Continue nicotine 21 mg daily DVT prophylaxis alps Pain pathway Regular diet Full code Problem List: 1. Alcohol dependence 2. Alcohol intoxication Pain Ratin Pain Location: n/a Pain Goal: Remain pain free Pain Plan: tylinol Tomorrow's Labs & Rationales: CBCs to monitor platelet count Terese Allison MD 05/01/17 1044: Attending MD Review Statement Attending Statement Attending MD Statement: examined this patient, discuss w/resident/PA/SPREADER OPERATOR, agreed w/resident/PA/SPREADER OPERATOR, reviewed EMR data (avail), discussed with nursing, discussed with case mgmt, amended to note Attending Assessment/Plan: Patient seen and examined, he was feeling sleepy this morning. Per RN, patient was trying to get out of bed. CIWA scores are not running high at this time. Patient himself denies any complaints. Vital Signs Date Time Temp Pulse Resp B/P B/P Pulse O2 O2 Flow FiO2 Mean Ox Delivery Rate 05/01 0949 87 122/78 05/01 0615 98.3 87 20 122/78 94 Room Air 05/01 0600 98.3 87 20 122/78 05/01 0200 98.7 98 20 154/82 05/01 0200 98.4 83 18 142/80 95 Room Air 05/01 0000 98.7 98 20 154/82 04/30 2236 98.7 98 20 154/82 93 Room Air 04/30 2200 98 154/92 04/30 2152 98 154/92 04/30 1812 98.3 81 16 152/80 04/30 1810 98.3 81 16 152/80 93 Room Air 04/30 1718 97.5 84 16 134/82 97 Room Air 04/30 1530 98.6 80 16 132/78 95 Room Air 04/30 1529 98.8 80 16 132/78 04/30 1437 98.7 80 18 126/74 04/30 1436 98.7 80 18 126/74 95 Room Air 04/30 1256 98.5 80 18 143/78 95 Room Air on exam; sleeping but woke up. cv; s1,s2, rrr resp; clear abd; soft, nt, bs+ ext; no edema Laboratory Tests 05/01 04/30 0742 1151 Chemistry Sodium (137 - 145 mmol/L) 138 142 Potassium (3.5 - 5.1 mmol/L) 3.8 3.6 Chloride (98 - 107 mmol/L) 99 100 Carbon Dioxide (22 - 30 mmol/L) 27 30 Anion Gap (5 - 16) 12 12 BUN (9 - 20 mg/dL) 13 10 Creatinine (0.7 - 1.2 mg/dL) 0.5 L 0.5 L Estimated GFR (>60 ml/min) > 60 > 60 BUN/Creatinine Ratio (7 - 25 %) 26.0 H 20.0 Hematology CBC w Diff NO MAN DIFF REQ NO MAN DIFF REQ WBC (4.8 - 10.8 /CUMM) 7.7 6.4 RBC (4.70 - 6.10 /CUMM) 3.58 L 3.44 L Hgb (14.0 - 18.0 G/DL) 12.8 L 12.3 L Hct (42 - 52 %) 37.6 L 35.9 L MCV (80.0 - 94.0 FL) 104.8 H 104.3 H MCH (27.0 - 31.0 PG) 35.6 H 35.6 H RDW (11.5 - 14.5 %) 14.2 14.4 Plt Count (130 - 400 /CUMM) 85 L 101 L MPV (7.4 - 10.4 FL) 8.1 7.3 L Gran % (42.2 - 75.2 %) 73.8 76.3 H Lymphocytes % (20.5 - 51.1 %) 17.7 L 15.7 L Monocytes % (1.7 - 9.3 %) 7.0 7.1 Eosinophils % (0 - 5 %) 1.4 0.2 Basophils % (0.0 - 2.0 %) 0.1 0.7 Absolute Granulocytes (1.4 - 6.5 /CUMM) 5.7 4.9 Absolute Lymphocytes (1.2 - 3.4 /CUMM) 1.4 1.0 L Absolute Monocytes (0.10 - 0.60 /CUMM) 0.5 0.5 Absolute Eosinophils (0.0 - 0.7 /CUMM) 0.1 0 Absolute Basophils (0.0 - 0.2 /CUMM) 0 0 PUBS MCHC (33.0 - 37.0 G/DL) 34.0 34.1 A/P; 67 male with history significant for coronary artery disease, alcohol use admitted with acute alcohol intoxication. Will continue Ativan taper. Patient be started on 1.5 Ativan every 6 scheduled and continue the Ativan per [facility] protocol. Otherwise blood pressure is improved. BEP stable, no need to check every day. Patient does have thrombocytopenia on CBC. Continue the rest of the medications. Once off of Ativan, patient [facility].
[2017-05-01 08:43] LABS: ABSOLUTE BASOPHIL COUNT 0 /CUMM (0.0-0.2); ABSOLUTE EOSINOPHIL COUNT 0.1 /CUMM (0.0-0.7); ABSOLUTE GRANULOCYTE CT 5.7 /CUMM (1.4-6.5); ABSOLUTE LYMPH COUNT 1.4 /CUMM (1.2-3.4); ABSOLUTE MONOCYTE COUNT 0.5 /CUMM (0.10-0.60); BASOPHIL % 0.1 % (0.0-2.0); EOSINOPHIL % 1.4 % (0-5); GRANULOCYTE % 73.8 % (42.2-75.2); HEMATOCRIT 37.6 % (42-52); MEAN CORPUSCULAR HGB 35.6 PG (27.0-31.0); MEAN CORPUSCULAR VOLUME 104.8 FL (80.0-94.0); MEAN PLATELET VOLUME 8.1 FL (7.4-10.4); PLATELET COUNT 85 /CUMM (130-400); RBC DISTRIBUTION WIDTH 14.2 % (11.5-14.5); RED BLOOD CELL CT 3.58 /CUMM (4.70-6.10); WHITE BLOOD CELL COUNT 7.7 /CUMM (4.8-10.8)
[2017-05-02 02:00] VITALS: BP 137/64
[2017-05-02 02:03] VITALS: BP 137/64
[2017-05-02 06:00] VITALS: BP 167/98
[2017-05-02 06:25] VITALS: BP 167/98
--- NOTE | 2017-05-02 07:07 | PN- Housestaff ---
Oswaldo Hope 05/02/17 0703: Subjective Follow-up For: Call detoxification Subjective: Patient was seen and examined. Alert awake and oriented to time place and person No events overnight No nausea, vomiting, headache, weakness, hallucination. Vitals remained stable blood pressure and heart rate normal CIWA scores were high up to 7-reporting anxietly, agitation, tremors, disoriented Review of Systems Constitutional: Reports: see HPI. Objective Last 24 Hrs of Vital Signs/I&O Vital Signs Date Time Temp Pulse Resp B/P B/P Pulse O2 O2 Flow FiO2 Mean Ox Delivery Rate 05/02 0625 97.3 97 20 167/98 98 05/02 0600 97.3 97 20 167/98 05/02 0203 97.9 85 20 137/64 98 05/02 0200 97.9 85 20 137/64 05/01 2200 98.3 112 18 124/80 05/01 2200 98.3 112 18 124/80 95 Room Air 05/01 1800 97.8 93 18 132/60 96 Room Air 05/01 1355 98.4 79 18 136/90 94 Room Air 05/01 1228 97.5 83 20 142/80 95 Room Air 05/01 0949 87 122/78 Intake & Output 05/02 0800 05/02 0000 05/01 1600 Intake Total 490 490 120 Output Total 100 200 Balance 490 390 -80 Intake, IV 10 10 Intake, Oral 480 480 120 Number 2 Bowel Movements Output, Urine 100 200 Physical Exam General Appearance: Alert, Oriented X3, Cooperative, No Acute Distress Other Physical Findings: Skin No Rashes, No Breakdown Skin Temp/Moisture Exam: Cool/Dry Sepsis Skin Exam (color): Normal for Ethnicity HEENT Atraumatic, PERRLA, EOMI, Mucous Membr. moist/pink Neck Supple, No JVD Lymphatic Cervical nl Cardiovascular Regular Rate, Normal S1, Normal S2, No Murmurs Lungs Normal Air Movement Abdomen Normal Bowel Sounds, Soft, No Tenderness Neurological Normal Speech, Strength at 5/5 X4 Ext, Normal Tone, Sensation Intact, Cranial Nerves 3-12 NL, Reflexes 2+ Extremities No Clubbing, No Cyanosis, No Edema, Normal Pulses Vascular Normal Pulses, Pulses Symmetrical Current Medications: Current Medications Sig/Zahraa Start time Last Medication Dose Route Stop Time Status Admin Acetaminophen 650 MG Q6P PRN 04/30 1115 AC PO Acetaminophen 1,000 MG Q6P PRN 04/30 1115 AC IV Aspirin 325 MG DAILY 04/30 1004 AC 05/01 PO 0950 Atorvastatin Calcium 10 MG DAILY 04/30 1004 AC 05/01 PO 0950 Folic Acid 1 MG DAILY 04/30 1112 AC 05/01 PO 0950 Gabapentin 300 MG Q8 04/30 1400 AC 05/02 PO 0552 Lorazepam 0.5 MG Q8 05/03 0600 AC PO 05/03 2201 Lorazepam 1 MG Q8 05/02 0600 AC 05/02 PO 05/02 2201 0552 Lorazepam 1.5 MG Q6 05/01 1200 DC 05/01 PO 05/01 2300 2232 Lorazepam 2 MG Q6 04/30 1200 DC 05/01 PO 0600 Lorazepam 0 Q1P PRN 04/30 1130 AC IV Metoprolol Tartrate 50 MG QAM 05/01 1000 AC 05/01 PO 0949 Metoprolol Tartrate 25 MG QPM 04/30 2200 AC 05/01 PO 2233 Multivitamins 1 TAB DAILY 04/30 1112 AC 05/01 PO 0949 Nicotine 21 MG Q24 04/30 1112 AC 05/01 TOP 0950 Thiamine HCl 100 MG DAILY 04/30 1112 AC 05/01 PO 0950 Last 24 Hrs of Lab/Camron Results Last 24 Hrs of Labs/Mics: Laboratory Tests 05/01/17 0742: Anion Gap 12, Estimated GFR > 60, BUN/Creatinine Ratio 26.0 H, CBC w Diff NO MAN DIFF REQ, RBC 3.58 L, MCV 104.8 H, MCH 35.6 H, RDW 14.2, MPV 8.1, Gran % 73.8, Lymphocytes % 17.7 L, Monocytes % 7.0, Eosinophils % 1.4, Basophils % 0.1 , Absolute Granulocytes 5.7, Absolute Lymphocytes 1.4, Absolute Monocytes 0.5, Absolute Eosinophils 0.1, Absolute Basophils 0, PUBS MCHC 34.0 Assessment/Plan Assessment: This is a 67-year-old male with past medical history significant for mitral valve replacement, atrial fibrillation status post cardioversion, not on anticoagulation, hyperlipidemia,nerve pain, current smoker, alcoholic presented to [facility] for alcohol detoxification. Vitals at the time of presentation afebrile, heart rate 110, respiratory rate 18, blood pressure 180/84, saturating at 98 on room air. Pertinent labs hemoglobin 13, hematocrit 30, MCV 104, WBC 7.7, platelets 135. Sodium 147, potassium 3.4, BUN 13, creatinine 0.5. LFTs were normal. Amylase and lipase normal. serum alc 533. EKG showed sinus rhythm, rate 78, right bundle branch block, QTC 523 1. Alcohol detox Patient presented to [facility] requesting for alcohol detox and going to [facility] for rehabilitation. Patient has been drinking for years. He usually drinks 2 pints of vodka daily. He was sober for a few months in this summer. However he continued to drink 2-3 pints of vodka daily. Last drink 30 minutes prior coming to the emergency room. Patient was admitted to [facility] recently for alcohol detox. He was never admitted to ICU for intubation or required Ativan drip. He has had episode of withdrawal seizures few years back. He continued to be hypotensive, tachycardic in the emergency room with high CIWA scores requiring for alcohol detoxification admission. * Admitted to general medicine for alcohol detoxification * Monitor vitals every shift * Monitor CIWA scores closely * Continue Ativan at scheduled doses * 2 mg every 6 hours- on 04/30. * 1.5 mg every 6hrs - on 05/01. * 1 mg every 8 hours for 05/02/2017 * 0.5 every 8 hours for 05/03/2017. Please adjust if required based on CIWA scores. * Continue Ativan IV for CIWA protocol as required * Continue multivitamin, thiamine, folate * auto glass worker consulted, on board * Alcohol cessation counseling * Will discharge to [facility] after completing alcohol detoxification Macrocytosis Hemoglobin 13, hematocrit 38, MCV 104 at the time of admission most possibly from alcohol abuse. HB remained stable Thrombocytopenia Platelets 135 at the time of admission. Most likely from alcohol abuse. However will hold any anticoagulation with heparin or Lovenox. Will continue Alps for now. * Platelets trend 135- 101- 85. * Monitor for any signs of bleeding Hypernatremia Sodium 147 at the time of admission. He was encouraged to take fluids. Sodium improved 144-138. Hypokalemia Potassium 3.4. Repleted. Repeat potassium 3.8. Current smoker Continue nicotine 21 mg daily DVT prophylaxis alps Pain pathway Regular diet Full code Problem List: 1. Alcohol dependence Pain Ratin Pain Location: n/a Pain Goal: Remain pain free Pain Plan: n./a Tomorrow's Labs & Rationales: none Maru Bassett 05/02/17 1233: Attending MD Review Statement Attending Statement Attending MD Statement: examined this patient, discuss w/resident/PA/ANALYTICAL LAB ANALYST, agreed w/resident/PA/ANALYTICAL LAB ANALYST, discussed with family, reviewed EMR data (avail), discussed with nursing, discussed with case mgmt, reviewed images, amended to note Attending Assessment/Plan: Patient is aaox 3 oriented. He is able to understand risks/benefits of continued medical management while inpatient. Patient decided to leave against medical advice. He is advised to f/u [facility] as outpatient. Patient also needs to f/u PCP as outpatient.
[2017-05-02 07:45] VITALS: BP 167/98
[2017-05-02 08:23] LABS: ABSOLUTE BASOPHIL COUNT 0 /CUMM (0.0-0.2); ABSOLUTE EOSINOPHIL COUNT 0.1 /CUMM (0.0-0.7); ABSOLUTE GRANULOCYTE CT 5.2 /CUMM (1.4-6.5); ABSOLUTE LYMPH COUNT 1.6 /CUMM (1.2-3.4); ABSOLUTE MONOCYTE COUNT 0.6 /CUMM (0.10-0.60); BASOPHIL % 0.2 % (0.0-2.0); EOSINOPHIL % 1.3 % (0-5); GRANULOCYTE % 68.9 % (42.2-75.2); HEMATOCRIT 38.8 % (42-52); MEAN CORPUSCULAR HGB 35.1 PG (27.0-31.0); MEAN CORPUSCULAR HGB CONC 33.5 G/DL (33.0-37.0); MEAN CORPUSCULAR VOLUME 104.8 FL (80.0-94.0); MEAN PLATELET VOLUME 9.1 FL (7.4-10.4); PLATELET COUNT 90 /CUMM (130-400); RBC DISTRIBUTION WIDTH 14.1 % (11.5-14.5); WHITE BLOOD CELL COUNT 7.5 /CUMM (4.8-10.8)
--- NOTE | 2017-05-02 10:25 | Patient Discharge Instructions ---
Discharge Instructions General Discharge Information You were seen/treated for: Alcohol detoxification Special Instructions: Please follow up with PCP in a week Please follow up with [facility] after discharge Please take ativan as prescribed Please come back if you have any seizures/severe signs of withdrawl Please call [facility] [phone] and let them know that you are coming home and then go to [facility] Diet Continue normal diet: Yes Activity Full Activity/No Limits: Yes Acute Coronary Syndrome Inclusion Criteria At DC or during hospital stay patient has or had the following: ACS DIAGNOSIS No Discharge Core Measures Meds if any: Prescribed or Continued at Discharge Meds if any: NOT Prescribed or Continued at Discharge Congestive Heart Failure Inclusion Criteria At DC or during hospital stay patient has or had the following: CHF DIAGNOSIS No Discharge Core Measures Meds if any: Prescribed or Continued at Discharge Meds if any: NOT Prescribed or Continued at Discharge Cerebrovascular accident Inclusion Criteria At DC or during hospital stay patient has or had the following: CVA/TIA Diagnosis No Discharge Core Measures Meds if any: Prescribed or Continued at Discharge Meds if any: NOT Prescribed or Continued at Discharge Venous thromboembolism Inclusion Criteria VTE Diagnosis No VTE Type NONE VTE Confirmed by (Test) NONE Discharge Core Measures - Per Current guidelines, there needs to be overlap - treatment for the first 5 days of Warfarin therapy. - If discharged on Warfarin prior to 5 days of - overlap therapy, the patient will need to be - assessed for post discharge needs including - *Post discharge parental anticoagulation - *Warfarin and/or parental anticoagulation education - *Follow up date to check INR post discharge At least 5 days overlap therapy as Inpatient No Meds if any: Prescribed or Continued at Discharge Note: Overlap Therapy is Warfarin and Anticoagulant Meds if any: NOT Prescribed or Continued at Discharge
[2017-05-02] MEDS ORDERED: VITAMIN B-1100 MG PO (11:02)
[2017-05-02] MEDS ORDERED: ONE DAILY MULT1 EAC2 PO (11:02)
[2017-05-02] MEDS ORDERED: FOLIC ACID1 M1 PO (11:02)
--- NOTE | 2017-05-02 12:04 | Event Note ---
Event Note Event Note: Situation Left AMA Brief Patient is a 67 YO M with PMH significant for alcohol detox, seizures in the past. He insisted on leaving AMA today although scheduled to go to [facility]. Discussed case with casemanagement and healthcare social worker. plan Gave [facility] number to call them about going home and then reaching out them. Gave taper of ativan. Signed against medical advise.
--- NOTE | 2017-05-04 08:54 | Discharge Summary ---
Visit Information Visit Dates Admission Date: 04/30/17 Discharge Date: 05/02/17 Hospital Course Course Attending Physician: Terese Allison MD Primary Care Physician: Unknown Hospital Course: This is a 67-year-old male with past medical history significant for mitral valve replacement, atrial fibrillation status post cardioversion, not on anticoagulation, hyperlipidemia,nerve pain, current smoker, alcoholic presented to [facility] for alcohol detoxification. Vitals at the time of presentation afebrile, heart rate 110, respiratory rate 18, blood pressure 180/84, saturating at 98 on room air. Pertinent labs hemoglobin 13, hematocrit 30, MCV 104, WBC 7.7, platelets 135. Sodium 147, potassium 3.4, BUN 13, creatinine 0.5. LFTs were normal. Amylase and lipase normal. serum alc 533. EKG showed sinus rhythm, rate 78, right bundle branch block, QTC 523 - 1. Alcohol detox Patient presented to [facility] requesting for alcohol detox and going to [facility] for rehabilitation. Patient has been drinking for years. He usually drinks 2 pints of vodka daily. He was sober for a few months in this summer. However he continued to drink 2-3 pints of vodka daily. Last drink 30 minutes prior coming to the emergency room. Patient was admitted to [facility] recently for alcohol detox. He was never admitted to ICU for intubation or required Ativan drip. He has had episode of withdrawal seizures few years back. He continued to be hypotensive, tachycardic in the emergency room with high CIWA scores requiring for alcohol detoxification admission. He was admitted to general medicine for alcohol detoxification. He was continued on scheduled doses of Ativan and as required doses of Ativan based on CIWA protocol. He was given multivitamin, thiamine, folate. commissary worker was consulted. The patient decided to leave [facility] medical advice on 05/02/2017. Case management was consulted. He was given referral for [facility]. PCP referral was provided. He was advised to follow-up with PCP. He was advised to go to [facility] for alcohol rehabilitation. Patient is competent enough to make his own decisions. He decided to leave the hospital aganist medical advice before completing the Ativan taper. Risks of leaving hospital were explained in detail. Macrocytosis Hemoglobin 13, hematocrit 38, MCV 104 at the time of admission most possibly from alcohol abuse. HB remained stable. Thrombocytopenia Platelets 135 at the time of admission. Most likely from alcohol abuse. Platelets trend 135- 101- 85. Monitored for any signs of bleeding Hypernatremia Sodium 147 at the time of admission. He was encouraged to take fluids. Sodium improved 144-138. Hypokalemia Potassium 3.4. Repleted. Repeat potassium 3.8. Current smoker Continued nicotine 21 mg daily DVT prophylaxis alps Pain pathway Regular diet Full code Allergies: Coded Allergies: penicillin G (Severe, 04/29/17) Disposition Summary Disposition Principal Diagnosis: Alcohol detoxification Additional Diagnosis: Macrocytic anemia Thrombocytopenia Discharge Disposition: left against medical adv Discharge Instructions General Discharge Information Code Status: Full Code Patient's Diet: As tolerated Patient's Activity: As tolerated Follow-Up Instructions/Appts: Please follow-up with PCP in one week after discharge. Medications at Discharge Discharge Medications: Continue taking these medications: Metoprolol Tartrate (Metoprolol Tartrate) 25 MG TABLET 1 Tablet ORAL Every night Aspirin (Aspirin*) 325 MG TABLET 1 Tablet ORAL DAILY Gabapentin (Gabapentin) 300 MG CAPSULE 1 Capsule ORAL 4 TIMES A DAY Metoprolol Tartrate (Lopressor) 50 MG TABLET 1 Tablet ORAL Every Morning Atorvastatin Calcium (Atorvastatin Calcium) 10 MG TABLET 1 Tablet ORAL DAILY Start taking the following new medications: Thiamine HCl (Vitamin B-1) 100 MG TABLET 1 Tablet ORAL DAILY Qty = 30 No Refills Folic Acid (Folic Acid) 1 MG TABLET 1 Tablet ORAL DAILY Qty = 30 No Refills Multivitamin (One Daily Multivitamin) 1 EACH TABLET 1 Tablet ORAL DAILY Qty = 30 No Refills Copies To: Hayden RAMIREZ,Hayden Attending MD Review Statement Other Findings: Physician incharge on day of patient leaving AMA is Dr. Maru brown.
== END 2017-05-02 11:59 | disposition left against medical advice (07) | DRG 894 ==
LOC: ERH 13:30 → 2NA 04-30 10:54 → ERHI 04-30 10:54 → ENRESERV 04-30 15:54 → ENTRNSPT 04-30 17:28 → EDTRNSPTSTS 04-30 17:29 → 2NA 04-30 17:59 → CMPTRNSPT 04-30 18:04 → 2NA 05-02 11:59
PROVIDERS: Hospitalist; Physician Assistant
DX: F10.239 Alcohol dependence with withdrawal, unspecified (principal); D69.6 Thrombocytopenia, unspecified; E87.0 Hyperosmolality and hypernatremia; I48.91 Unspecified atrial fibrillation; E78.5 Hyperlipidemia, unspecified; Y90.8 Blood alcohol level of 240 mg/100 ml or more; I10 Essential (primary) hypertension; D75.89 Other specified diseases of blood and blood-forming organs; E87.6 Hypokalemia; D53.9 Nutritional anemia, unspecified; Z95.2 Presence of prosthetic heart valve; M79.2 Neuralgia and neuritis, unspecified; F17.200 Nicotine dependence, unspecified, uncomplicated
CPT/HCPCS: 2NASP; 36415; 80307; 82436; 93005; 93010; 96360; G0480; J0131; J1650; J2405; J3101; J3490